=== PATIENT | female | born 1995 | race Caucasian/White ===

== ENCOUNTER 2019-10-06 23:25 | Emergency (ER) | payer BC, OTHER ==
[~2019-10-06] VITALS: Ht 177.8 cm; Wt 118.8 kg
[2019-10-07] MEDS ORDERED: ONDANSETRON PF 4 MG/2 ML VIAL. IV ONE (01:15)
[2019-10-07] MEDS ORDERED: IV NORMAL SALINE 1,000ML 1,000 ML IV ONE (01:15)
[2019-10-07 01:29] LABS: BASO % 0 % (0-3); EOS % 0 % (0-3); HEMATOCRIT 37.9 % (36.0-47.0); HEMOGLOBIN 12.7 g/dL (12.0-15.5); LYMPH # 0.7 x10^3/uL (1.0-4.8); LYMPH % 8 % (24-48); MEAN CORPUSCULAR HEMOGLOBIN 28 pg (25-35); MEAN CORPUSCULAR HGB CONC 34 g/dL (31-37); MEAN CORPUSCULAR VOLUME 83 fL (79-100); MONO # 0.1 x10^3/uL (0.0-1.1); MONO % 1 % (0-9); NEUT % 91 % (31-73); PLATELET COUNT 288 x10^3/uL (140-400); RED BLOOD COUNT 4.56 x10^6/uL (3.50-5.40); RED CELL DISTRIBUTION WIDTH 14.9 % (11.5-14.5); WHITE BLOOD COUNT 9.9 x10^3/uL (4.0-11.0)
--- NOTE | 2019-10-07 01:31 | PHYS DOC ---
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 This concerned her and brought her to the emergency room. Also she does note for the last 30 minutes or so she's been having right-sided abdominal pain, dull mild lower abdomen has had a history of a gallbladder surgery in the past. Patient has nausea no vomiting has does suffer from intermittent diarrhea denies any urinary symptoms. She is worried because she has been fatigued the last couple weeks she went to her primary care doctor and had labs done on Sunday but they're not back yet. She does take methotrexate injections once a week she missed last week because she was worried because she went to urgent care and she had bilirubin her urine and she was worried about that so she did not take her methotrexate last time. Review of Systems Review of Systems Constitutional: Denies fever or chills [] Eyes: Denies change in visual acuity, redness, or eye pain [] HENT: Denies nasal congestion or sore throat [] Respiratory: mild cough Musculoskeletal: joint pains from pa Neurologic: Denies headache, focal weakness or sensory changes [] Endocrine: Denies polyuria or polydipsia [] All other systems were reviewed and found to be within normal limits, except as documented in this note. Current Medications Current Medications Current Medications Medications (Trade) Dose Ordered Sig/Natalie Start Time Stop Time Status Last Admin Dose Admin Ondansetron HCl (Zofran) 4 mg 1X ONCE 10/07/19 01:15 10/07/19 01:22 DC 10/07/19 01:22 4 MG Sodium Chloride 1,000 ml @ 1,000 mls/hr 1X ONCE 10/07/19 01:15 10/07/19 02:14 10/07/19 01:15 1,000 MLS/HR Allergies Allergies Allergies Coded Allergies Type Severity Reaction Last Updated Verified Sulfa (Sulfonamide Antibiotics) Allergy Intermediate 10/07/19 Yes cephalexin Allergy Intermediate 10/07/19 Yes egg Allergy Intermediate 10/07/19 Yes peanut Allergy Intermediate 10/07/19 Yes shellfish derived Allergy Intermediate 10/07/19 Yes Physical Exam Physical Exam Constitutional: Well developed, well nourished, no acute distress, non-toxic appearance. [] HENT: Normocephalic, atraumatic, bilateral external ears normal, oropharynx moist, no oral exudates, nose normal. [] Eyes: PERRLA, EOMI, conjunctiva normal, no discharge. [] Neck: Normal range of motion, no tenderness, supple, no stridor. [] Cardiovascular:Heart rate regular rhythm, no murmur [] Lungs & Thorax: Bilateral breath sounds clear to auscultation [] Abdomen: Bowel sounds normal, soft, mild rlq tenderness, no masses, no pulsatile masses. [] Skin: Warm, dry, no erythema, no rash. [] Back: No tenderness, no CVA tenderness. [] Extremities: No tenderness, no cyanosis, no clubbing, ROM intact, no edema. [] Neurologic: Alert and oriented X 3, normal motor function, normal sensory function, no focal deficits noted. [] fnf intact cn's intact. Psychologic: Affect normal, judgement normal, mood normal. [] Current Patient Data Vital Signs Vital Signs Date Time Temp Pulse Resp B/P (MAP) Pulse Ox O2 Delivery O2 Flow Rate FiO2 10/07/19 00:45 98.8 75 16 98 Room Air EKG EKG []Normal sinus rhythm rate of 70 no acute ischemic changes noted interpreted by me the time of encounter no STEMI. Radiology/Procedures Radiology/Procedures [] Impressions: IMPRESSION: 1. No acute process. Appendix is negative. No urinary calculi or hydronephrosis. 2. 3 cm fluid density dominant follicle or cyst of the right ovary. Intrauterine device. Electronically signed by: Tatiana Martinez MD (10/07/2019 3:06 AM) [id number] DICTATED AND SIGNED BY: TATIANA MARTINEZ MD DATE: 10/07/19 0306 CC: HANNAH ZHOU MD; ANGEL DAVE MD ~ Course & Med Decision Making Course & Med Decision Making Pertinent Labs and Imaging studies reviewed. (See chart for details) []Vague symptoms does have some mild right lower quadrant tenderness we will start some lab work hydrate treat nausea and go from there. It sounds that she might of had some orthostatic hypotension-type symptoms earlier she does have a history of psoriatic arthritis she is on methotrexate. pt reassured er workup negative no dysuria pt well appearing d/c home Dragon Disclaimer Dragon Disclaimer This electronic medical record was generated, in whole or in part, using a voice recognition dictation system. Departure Departure: Impression: Primary Impression: Abdominal pain Disposition: HOME, SELF-CARE Condition: STABLE Referrals: ANGEL DAVE MD (PCP) HANNAH ZHOU MD Oct 07, 2019 01:31
[2019-10-07 01:33] LABS: CALCIUM 9.1 mg/dL (8.5-10.1); GFR 69.3; POTASSIUM 4.5 mmol/L (3.5-5.1)
[2019-10-07 01:38] LABS: ALBUMIN 3.9 g/dL (3.4-5.0); ALBUMIN/GLOBULIN RATIO 1.1 (1.0-1.7); TOTAL BILIRUBIN 0.2 mg/dL (0.2-1.0); TOTAL PROTEIN 7.4 g/dL (6.4-8.2)
[2019-10-07 01:51] LABS: COLOR,URINE YELLOW
[2019-10-07 01:52] LABS: BACTERIA,URINE FEW /HPF (0-FEW); BILIRUBIN,URINE NEG (NEG); CLARITY,URINE HAZY; GLUCOSE,URINE NEG (NEG); NITRITE,URINE NEG (NEG); RBC,URINE OCC /HPF (0-2); SQUAMOUS EPITHELIAL CELL,UR FEW /LPF; UROBILINOGEN,URINE 0.2 mg/dL (0.2 mg/dL)
--- NOTE | 2019-10-07 02:07 | RAD ---
AP chest x-ray HISTORY: Dizziness, chest pain. FINDINGS: Mediastinal silhouette is normal. Heart size is normal. No pneumothorax, pulmonary opacities or pleural effusions. Bones are unremarkable. IMPRESSION: No acute process. Electronically signed by: Wayne Martinez MD (10/07/2019 2:04 AM) [id number]
--- NOTE | 2019-10-07 03:09 | RAD ---
CT abdomen and pelvis without contrast PQRS statement: CT scans at this facility use dose reduction including either automated exposure control, iterative reconstructions, and /or weight based radiation dosing via mA and kV modification when appropriate to reduce radiation dose to as low as reasonably achievable. HISTORY: Right lower quadrant abdominal pain. Abdomen findings: 2 mm left lower lobe nodule image 19 given the patient's young age of doubtful significance. No urinary calculi or hydronephrosis. Kidneys, adrenal glands, pancreas, spleen and liver are unremarkable. The appendix is negative. No obstruction or inflammatory changes in GI tract. No abdominal fluid. Lung bases and bones are unremarkable. Pelvis findings: Intrauterine device. Right adnexal 3 cm fluid density dominant follicle or cyst. Left ovary, bladder, rectum and bones are unremarkable. IMPRESSION: 1. No acute process. Appendix is negative. No urinary calculi or hydronephrosis. 2. 3 cm fluid density dominant follicle or cyst of the right ovary. Intrauterine device. Electronically signed by: Wayne Martinez MD (10/07/2019 3:06 AM) [id number]
[2019-10-07 03:33] VITALS: BP 146/85
--- NOTE | 2019-10-07 06:49 | EKG ---
[address] [address] Test Date: 2019-10-07 Test Time: 00:46:36 Pat Name: BRITTON BARAJAS Department: Room: Gender: F Management Specialist: : 1995 Requested By: HANNAH ZHOU Order Number: [id number] Reading MD: Measurements Intervals [place] Rate: 70 P: 38 [place]: 148 QRS: 74 QRSD: 90 T: 61 QT: 374 QTc: 407 Interpretive Statements SINUS RHYTHM QRS(T) CONTOUR ABNORMALITY CONSIDER ANTEROLATERAL MYOCARDIAL DAMAGE POSSIBLY ABNORMAL ECG RI6.01 No previous ECG available for comparison
== END 2019-10-07 03:58 | disposition home or self-care (01) ==
LOC: ER 23:25
DX: R10.31 Right lower quadrant pain (principal); R42 Dizziness and giddiness; M79.7 Fibromyalgia; Z90.49 Acquired absence of other specified parts of digestive tract; Z88.2 Allergy status to sulfonamides; Z88.1 Allergy status to other antibiotic agents; Z91.012 Allergy to eggs; Z91.010 Allergy to peanuts; Z91.013 Allergy to seafood
CPT/HCPCS: 36415; 71045; 74176; 80053; 81001; 81025; 83690; 84484; 85025; 87086; 93005; 96361; 96374; 96375; 99285; J2405; J3010; J7030

== ENCOUNTER → 2019-11-07 | Outpatient (CLI) | payer BC, OTHER ==
--- NOTE | 2019-11-07 12:41 | RAD ---
EXAM: Nuclear gastric emptying scan. HISTORY: Pain COMPARISON: None TECHNIQUE: Serial static images were obtained over the stomach following oral administration of 1.7 mCi of 99m-Tc sulfur colloid in oatmeal. FINDINGS: The stomach empties into the small bowel without evidence of reflux in the area of the esophagus. The estimated time for half emptying of gastric contents, i.e. 'gastric emptying time' is 48 minutes (normal is 66 +/- 22 minutes). There is 36% retained tracer activity within the stomach at one hour, 21% retained tracer activity within stomach at 2 hours, 12% retained tracer activity within stomach at 3 hours 8% retained tracer activity within the stomach at 4 hours. IMPRESSION: Normal gastric emptying scan. Electronically signed by: Juliann Ambrose MD (11/07/2019 12:38 PM) [facility] [place]
== END | disposition home or self-care (01) ==
LOC: NM 07:55
PROVIDERS: ATTEND Internal Medicine Gastroenterology
DX: R10.13 Epigastric pain (principal)
CPT/HCPCS: 78264; A9541

== ENCOUNTER 2019-11-17 20:40 | Emergency (ER) | payer BC, OTHER ==
[~2019-11-17] VITALS: Ht 177.8 cm; Wt 118.0 kg
[2019-11-17 20:50] VITALS: BP 154/94
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
[2019-11-17] MEDS ORDERED: IBUPROFEN 600 MG TABLET. PO ONE (21:00)
[2019-11-17 21:47] LABS: BILIRUBIN,URINE NEG (NEG); CLARITY,URINE TURBID; COLOR,URINE YELLOW; GLUCOSE,URINE NEG (NEG)
[2019-11-17 21:48] LABS: BACTERIA,URINE MOD /HPF (0-FEW); NITRITE,URINE POS (NEG); SQUAMOUS EPITHELIAL CELL,UR MANY /LPF; UROBILINOGEN,URINE 0.2 mg/dL (0.2 mg/dL); WBC,URINE 20-40 /HPF (0-4)
[2019-11-17 21:51] LABS: BARBITURATES NEG (NEG); BENZODIAZEPINES NEG (NEG); CANNABINOIDS NEG (NEG); COCAINE NEG (NEG); METHADONE NEG (NEG); OPIATES NEG (NEG); PHENCYCLIDINE NEG (NEG)
[2019-11-17 21:52] LABS: AMPHETAMINE/METHAMPHETAMINE NEG (NEG)
--- NOTE | 2019-11-17 22:15 | RAD ---
CT HEAD AND CERVICAL SPINE WO, CT MAXILLOFACIAL WO CONTRAST Date: 11/17/2019 8:59 PM Clinical Indication: Pain, fall Comparison: None. Technique: 5 mm axial tomographic images were obtained of the head without contrast. These were viewed on brain and bone windows. Axial helical images of the face were obtained without contrast. Axial and coronal reconstruction was performed. CT imaging of the cervical spine was performed without contrast. Coronal and sagittal reformatted images were performed. One or more of the following dose reduction techniques were utilized: Automated exposure control (AEC), Adjustment of mA and/or kV according to patient size, Use of iterative reconstruction technique such as ASiR, CT scan done according to ALARA and image gently/image wisely CT HEAD FINDINGS: The brain parenchyma is normal in attenuation. No intra- or extra-axial mass or fluid collection. No acute hemorrhage. The ventricles are normal in size, shape, and morphology. The quinn-white matter junction is normal. The basilar cisterns are patent. The mastoid air cells are clear. No aggressive osseous lesion or fracture. CT FACE FINDINGS: There is no acute facial bone fracture. 6 mm sublingual calcification of the right, possibly sialolithiasis. The paranasal sinuses are clear. The orbits are normal. The globes are intact. The nasal septum is deviated to the right. Left jennifer bullosa. CT CERVICAL SPINE FINDINGS: Straightening of the cervical lordosis. No acute fracture. No aggressive lytic or blastic osseous lesion. The intervertebral disc heights are maintained. No high-grade spinal canal stenosis or neural foraminal narrowing. The thyroid gland is normal. No cervical lymphadenopathy. The visualized aerodigestive tract is unremarkable. The visualized lung apices are clear. Impression: 1. No acute intracranial process. 2. No acute facial bone fracture. 3. No acute osseous abnormality of the cervical spine. Electronically signed by: Arpan Frederick MD (11/17/2019 10:12 PM) [id number]
[2019-11-17] MEDS ORDERED: HYDR-1179 PO (22:31)
== END 2019-11-17 23:10 | disposition home or self-care (01) ==
LOC: ER 20:40
DX: S00.83XA Contusion of other part of head, initial encounter (principal); Z90.49 Acquired absence of other specified parts of digestive tract; Z88.2 Allergy status to sulfonamides; Z91.010 Allergy to peanuts; Z91.013 Allergy to seafood; Z91.012 Allergy to eggs; Z88.8 Allergy status to other drugs, medicaments and biological substances; Y04.2XXA Assault by strike against or bumped into by another person, initial encounter; Y93.89 Activity, other specified; Y92.89 Other specified places as the place of occurrence of the external cause; Y99.8 Other external cause status
CPT/HCPCS: 36415; 70450; 70486; 72125; 80307; 81001; 81025; 87086; 99285

== ENCOUNTER → 2020-04-15 | Outpatient (CLI) | payer OTHER ==
[~2020-04-15] MED LIST: HYDR-1179 PO
== END ==
LOC: LAB 06:50
PROVIDERS: ATTEND Internal Medicine Cardiovascular Disease
DX: J45.909 Unspecified asthma, uncomplicated (principal); M79.7 Fibromyalgia; M35.8 Other specified systemic involvement of connective tissue; Z20.828 Contact with and (suspected) exposure to other viral communicable diseases
CPT/HCPCS: 36415; U0003

== ENCOUNTER → 2020-04-22 | Outpatient (CLI) | payer OTHER | END | disposition home or self-care (01) | LOC: LAB 04:50 | PROVIDERS: ATTEND Internal Medicine Cardiovascular Disease | DX: Z20.828 Contact with and (suspected) exposure to other viral communicable diseases (principal) | CPT/HCPCS: C9803; U0003; 36415 ==

== ENCOUNTER → 2020-04-29 | Outpatient (CLI) | payer OTHER | END | disposition home or self-care (01) | LOC: LAB 06:23 | PROVIDERS: ATTEND Internal Medicine Cardiovascular Disease | DX: R05 Cough (principal); R06.03 Acute respiratory distress; Z20.828 Contact with and (suspected) exposure to other viral communicable diseases | CPT/HCPCS: C9803; U0003; 36415 ==

== ENCOUNTER → 2020-05-23 | Outpatient (CLI) | payer OTHER | END | disposition home or self-care (01) | LOC: LAB 11:47 | PROVIDERS: ATTEND Internal Medicine Cardiovascular Disease | DX: Z20.828 Contact with and (suspected) exposure to other viral communicable diseases (principal) | CPT/HCPCS: U0003-CS ==

== ENCOUNTER → 2020-06-03 | Outpatient (CLI) | payer OTHER | END | disposition home or self-care (01) | LOC: LAB 06:12 | PROVIDERS: ATTEND Internal Medicine Cardiovascular Disease | DX: Z20.828 Contact with and (suspected) exposure to other viral communicable diseases (principal) | CPT/HCPCS: U0003-CS ==

== ENCOUNTER → 2020-07-07 | Outpatient (CLI) | payer BC, OTHER ==
--- NOTE | 2020-07-07 13:55 | RAD ---
EXAMINATION: BREAST LEFT, 07/07/2020 1:00 PM CLINICAL INDICATION: Pain in lower inner left breast COMPARISON: None TECHNIQUE: The patient was scanned in the area of pain in the lower inner left breast from 7-9 o'clock SONOGRAPHIC FINDINGS: There is normal thyroid glandular tissue. No mass or cyst. IMPRESSION: 1. No evidence of malignancy. 2. BI-RADS 1-negative. Annual screening mammogram is recommended beginning at the age of 40. Electronically signed by: Minnie Pandey MD (07/07/2020 1:52 PM) [id number]
== END ==
LOC: US 13:15
PROVIDERS: ATTEND Obstetrics & Gynecology
DX: N64.4 Mastodynia (principal); N63.20 Unspecified lump in the left breast, unspecified quadrant
CPT/HCPCS: 76641

== ENCOUNTER 2020-07-31 04:21 | Emergency (ER) | payer BC, OTHER ==
[~2020-07-31] VITALS: Ht 177.8 cm; Wt 126.5 kg
--- NOTE | 2020-07-31 04:26 | PHYS DOC ---
Past History Past Medical History: Arthritis, Fibromyalgia, GERD, Other Additional Past Medical Histor: LUPUS,PSORIATIC ARTHRITIS, ULCER IN SMALL INTESTINE AND STOMACH (BRIDGER LOPEZ MD) Past Surgical History: Cholecystectomy (BRIDGER LOPEZ MD) Alcohol Use: None Drug Use: None (BRIDGER LOPEZ MD) General Adult HPI: HPI: ".. I got some lt arm, Lt. leg and chest tightness.. I was walking down the hallway when it came on.. I was up on [facility]... I just got a canker sore on my upper lip on the left ear,,, this usually happens when getting a lupus flare,,, my last bad flare was 2016.. " Patient is a 25 year old female who presents with above hx and complaints of chest pain with Lt side weakness/ numbness. Pt. has hx of psoriasis, arthritis, lupus, gastric ulcers and duodenal ulcers. Patient recently had a development of a upper lip canker sore. Patient did receive her flu vaccination on her right arm earlier this week with generalized reaction to her right deltoid area. Patient denies any recent trauma or falls. Patient has been exposed to patients who have been ill on the [facility] unit. Patient was exposed to her mother earlier this spring who had Covid. Patient's Covid test has been -716 and 9/ 3 of this year as part of the screening on the [facility]. No recent travel. Patient normally follows with Dr. Dave. Patient has not been on steroids recently for her psoriasis, lupus and arthritis flares. Patient denies any previous history of pericarditis or pulmonary, DVTs or PEs. Patient is on control with a copper IUD. (BRIDGER LOPEZ MD) Review of Systems: Review of Systems: Constitutional: Denies fever or chills Eyes: Denies change in visual acuity HENT: Complains of canker sore on upper lip Respiratory: Denies cough or shortness of breath Cardiovascular: Complaints of chest pain GI: Denies abdominal pain, nausea, vomiting, bloody stools or diarrhea : Denies dysuria Musculoskeletal: Complaints of joint pain and arthritis Integument: Complaints of psoriasis Neurologic: Complains of left-sided weakness Endocrine: Denies polyuria or polydipsia Lymphatic: Denies swollen glands Psychiatric: History of anxiety (BRIDGER LOPEZ MD) Family History: Family History: Noncontributory to presentation (BRIDGER LOPEZ MD) Current Medications: Current Meds: See nursing for home meds (BRIDGER LOPEZ MD) Allergies: Allergies: Allergies Coded Allergies Type Severity Reaction Last Updated Verified Sulfa (Sulfonamide Antibiotics) Allergy Intermediate 10/07/19 Yes cephalexin Allergy Intermediate 10/07/19 Yes egg Allergy Intermediate 10/07/19 Yes peanut Allergy Intermediate 10/07/19 Yes shellfish derived Allergy Intermediate 10/07/19 Yes (BRIDGER LOPEZ MD) Physical Exam: PE: Constitutional: Moderate acute distress, non-toxic appearance. [] HENT: Normocephalic, atraumatic, bilateral external ears normal, oropharynx moist, no oral exudates, nose normal. Small canker sore left upper lip Eyes: PERRLA, EOMI, conjunctiva normal, no discharge. Glasses Neck: Normal range of motion, no tenderness, supple, no stridor. No carotid bruits Cardiovascular:Heart rate regular rhythm, no murmur [] Lungs & Thorax: Bilateral breath sounds equal at apex on auscultation [] Abdomen: Bowel sounds normal, soft, no tenderness, no masses, no pulsatile masses. Obese Skin: Warm, dry, no erythema, mild guttate psoriasis lesions Back: No tenderness, no CVA tenderness. [] Extremities: No tenderness, no cyanosis, no clubbing, ROM intact, no edema. No cording appreciated Neurologic: Alert and oriented X 3, moves all extremities on request, has distal sensory function, no focal deficits noted. Distal vibratory 128 intact. In extremities. No drift. Right-hand dominant. Loading Checker equal. Psychologic: Affect anxious, judgement normal, mood normal. [] (BRIDGER LOPEZ MD) Current Patient Data: Labs: Laboratory Tests Test 07/31/20 04:41 07/31/20 04:48 White Blood Count 6.2 x10^3/uL (4.0-11.0) Red Blood Count 4.58 x10^6/uL (3.50-5.40) Hemoglobin 12.6 g/dL (12.0-15.5) Hematocrit 38.1 % (36.0-47.0) Mean Corpuscular Volume 83 fL (79-100) Mean Corpuscular Hemoglobin 28 pg (25-35) Mean Corpuscular Hemoglobin Concent 33 g/dL (31-37) Red Cell Distribution Width 13.6 % (11.5-14.5) Platelet Count 265 x10^3/uL (140-400) Neutrophils (%) (Auto) 61 % (31-73) Lymphocytes (%) (Auto) 29 % (24-48) Monocytes (%) (Auto) 9 % (0-9) Eosinophils (%) (Auto) 1 % (0-3) Basophils (%) (Auto) 1 % (0-3) Neutrophils # (Auto) 3.7 x10^3uL (1.8-7.7) Lymphocytes # (Auto) 1.8 x10^3/uL (1.0-4.8) Monocytes # (Auto) 0.6 x10^3/uL (0.0-1.1) Eosinophils # (Auto) 0.1 x10^3/uL (0.0-0.7) Basophils # (Auto) 0.0 x10^3/uL (0.0-0.2) Prothrombin Time 9.8 SEC (9.4-11.4) Prothromb Time International Ratio 0.9 (0.9-1.1) Activated Partial Thromboplast Time 28 SEC (23-33) D-Dimer (Valeria) 0.39 mg/L (0.00-0.50) Sodium Level 142 mmol/L (136-145) Potassium Level 3.7 mmol/L (3.5-5.1) Chloride Level 104 mmol/L (98-107) Carbon Dioxide Level 27 mmol/L (21-32) Anion Gap 11 (6-14) Blood Urea Nitrogen 15 mg/dL (7-20) Creatinine 1.2 mg/dL (0.6-1.0) Estimated GFR (Cockcroft-Gault) 55.7 Glucose Level 97 mg/dL (70-99) Calcium Level 8.5 mg/dL (8.5-10.1) Magnesium Level 2.1 mg/dL (1.8-2.4) Total Bilirubin 0.1 mg/dL (0.2-1.0) Direct Bilirubin 0.1 mg/dL (0.0-0.2) Aspartate Amino Transf (AST/SGOT) 25 U/L (15-37) Alanine Aminotransferase (ALT/SGPT) 36 U/L (14-59) Alkaline Phosphatase 101 U/L (46-116) Creatine Kinase 161 U/L (26-192) Troponin I Quantitative < 0.017 ng/mL (0-0.055) C-Reactive Protein 11.3 mg/L (0-3.3) VV-Jpn-C-Type Natriuretic Peptide 33 pg/mL (0-124) Total Protein 7.5 g/dL (6.4-8.2) Albumin 3.8 g/dL (3.4-5.0) Lipase 112 U/L (73-393) Urine Collection Type Unknown Urine Color Yellow Urine Clarity Hazy Urine pH 6.5 Urine Specific Kegley >=1.030 Urine Protein Neg (NEG-TRACE) Urine Glucose (UA) Neg mg/dL (NEG) Urine Ketones (Stick) Trace mg/dL (NEG) Urine Blood Large (NEG) Urine Nitrite Neg (NEG) Urine Bilirubin Neg (NEG) Urine Urobilinogen Dipstick 0.2 mg/dL (0.2 mg/dL) Urine Leukocyte Esterase Neg (NEG) Urine RBC 20-40 /HPF (0-2) Urine WBC Occ /HPF (0-4) Urine Squamous Epithelial Cells Few /LPF Urine Bacteria Few /HPF (0-FEW) Urine Opiates Screen Neg (NEG) Urine Methadone Screen Neg (NEG) Urine Barbiturates Neg (NEG) Urine Phencyclidine Screen Neg (NEG) Urine Amphetamine/Methamphetamine Neg (NEG) Urine Benzodiazepines Screen Neg (NEG) Urine Cocaine Screen Neg (NEG) Urine Cannabinoids Screen Neg (NEG) Urine Ethyl Alcohol Neg (NEG) Vital Signs: Vital Signs Date Time Temp Pulse Resp B/P (MAP) Pulse Ox O2 Delivery O2 Flow Rate FiO2 07/31/20 06:24 60 8 126/65 (85) 100 Room Air 07/31/20 04:54 98.7 (KAM RAM DO) EKG: EKG: My interpretation EKG shows a sinus rhythm at 74 bpm with no acute morphology [] (BRIDGER LOPEZ MD) Radiology/Procedures: Radiology/Procedures: [[address] [address] IMAGING REPORT Signed PATIENT: BRITTON BARAJASCOUNT: [id number] : 1995 LOCATION: ER AGE: 25 SEX: F EXAM STATUS: REG ER ORD. PHYSICIAN: BRIDGER LOPEZ MD REASON: Lt side weak and numbness PROCEDURE: CT HEAD AND CERVICAL SPINE WO INDICATION: Reason: Lt side weak and numbness / Spl. Instructions: / History: COMPARISON: None. TECHNIQUE: Axial CT images obtained through the head and cervical spine without intravenous contrast. Coronal and sagittal reformats processed of cervical spine. One or more of the following individualized dose reduction techniques were utilized for this examination: 1. Automated exposure control; 2. Adjustment of the mA and/or kV according to patient size; 3. Use of iterative reconstruction technique. FINDINGS: Head: No intracranial hemorrhage. No midline shift. Basal cisterns patents. Ventricles and sulci are within normal limits. No acute osseous abnormality. Orbits and paranasal sinuses unremarkable. Cervical: No definite acute fracture. Mild wedging of T1 and T2 again seen. There is some mild degenerative changes of the cervical spine with early osteophyte formation at the vertebral body endplates as well as disc protrusion. There is mild prominence of the facet joint at C4-5 on the left measuring up to about 2 mm. No dislocation. No evidence of perivertebral hematoma. IMPRESSION: * No acute intracranial hemorrhage. * No acute fracture of cervical spine. There is some early degenerative changes with osteophyte formation as well as disc protrusions. * Mild prominence of the left facet joint at C4-5. Causes such as a facet joint effusion could have this appearance. Electronically signed by: Duglas Nice MD (07/31/2020 5:46 AM) [id number] DICTATED AND SIGNED BY: DUGLAS NICE MD DATE: 07/31/20 0546 CC: BRIDGER LOPEZ MD; ANGEL DAVE MD ~ ][address] [address] IMAGING REPORT Signed PATIENT: BRITTON BARAJAS MACCOUNT: [id number] : 1995 LOCATION: ER AGE: 25 SEX: F EXAM STATUS: REG ER ORD. PHYSICIAN: BRIDGER LOPEZ MD REASON: cp PROCEDURE: CHEST PA & LATERAL INDICATION: Reason: cp / Spl. Instructions: / History: COMPARISON: October 07, 2019 FINDINGS: 2 view of chest obtained. No focal airspace consolidation. Cardiomediastinal contour unremarkable. No acute osseous abnormality. There is some suspected mild degenerative changes the spine with osteophytes. IMPRESSION: * No focal airspace consolidation or edema. Electronically signed by: Duglas Nice MD (07/31/2020 5:30 AM) [id number] DICTATED AND SIGNED BY: DUGLAS NICE MD DATE: 07/31/20529 CC: BRIDGER LOPEZ MD; ANGEL DAVE MD ~ (BRIDGER LOPEZ MD) Radiology/Procedures: PROCEDURE: CT HEAD AND CERVICAL SPINE WO INDICATION: Reason: Lt side weak and numbness / Spl. Instructions: / History: COMPARISON: None. TECHNIQUE: Axial CT images obtained through the head and cervical spine without intravenous contrast. Coronal and sagittal reformats processed of cervical spine. One or more of the following individualized dose reduction techniques were utilized for this examination: 1. Automated exposure control; 2. Adjustment of the mA and/or kV according to patient size; 3. Use of iterative reconstruction technique. FINDINGS: Head: No intracranial hemorrhage. No midline shift. Basal cisterns patents. Ventricles and sulci are within normal limits. No acute osseous abnormality. Orbits and paranasal sinuses unremarkable. Cervical: No definite acute fracture. Mild wedging of T1 and T2 again seen. There is some mild degenerative changes of the cervical spine with early osteophyte formation at the vertebral body endplates as well as disc protrusion. There is mild prominence of the facet joint at C4-5 on the left measuring up to about 2 mm. No dislocation. No evidence of perivertebral hematoma. IMPRESSION: * No acute intracranial hemorrhage. * No acute fracture of cervical spine. There is some early degenerative changes with osteophyte formation as well as disc protrusions. * Mild prominence of the left facet joint at C4-5. Causes such as a facet joint effusion could have this appearance. Electronically signed by: Duglas Nice MD (07/31/2020 5:46 AM) Car[employer]on [id number] PROCEDURE: CHEST PA & LATERAL INDICATION: Reason: cp / Spl. Instructions: / History: COMPARISON: October 07, 2019 FINDINGS: 2 view of chest obtained. No focal airspace consolidation. Cardiomediastinal contour unremarkable. No acute osseous abnormality. There is some suspected mild degenerative changes the spine with osteophytes. IMPRESSION: * No focal airspace consolidation or edema. Electronically signed by: Duglas Nice MD (07/31/2020 5:30 AM) [id number] (KAM RAM DO) Heart Score: HEART Score for Chest Pain: HEART Score for Chest Pain Response (Comments) Value History Slighlty/Non-Suspicious 0 ECG Normal 0 Age < 45 0 Risk Factors 1 or 2 Risk Factors 1 Troponin < Normal Limit 0 Total 1 Risk Factors: Risk Factors: DM, Current or recent (<one month) smoker, HTN, HLP, family history of CAD, obesity. Risk Scores: Score 0 - 3: 2.5% MACE over next 6 weeks - Discharge Home Score 4 - 6: 20.3% MACE over next 6 weeks - Admit for Clinical Observation Score 7 - 10: 72.7% MACE over next 6 weeks - Early Invasive Strategies (BRIDGER LOPEZ MD) HEART Score for Chest Pain: HEART Score for Chest Pain Response (Comments) Value History Moderately Suspicious 1 ECG Normal 0 Age < 45 0 Risk Factors 1 or 2 Risk Factors 1 Troponin < Normal Limit 0 Total 2 Risk Factors: Lupus (KAM RAM DO) Course & Med Decision Making: Course & Med Decision Making Pertinent Labs and Imaging studies reviewed. (See chart for details) Pt. checked out to Dr. Ram at shift change. Labs pending and CT results. Impression: 1. Hx. Lupus 2. Chest Pain Complaints 3. History of psoriatic arthritis [] (BRIDGER LOPEZ MD) Course & Med Decision Making Discussed most likely diagnosis of unspecified chest pain versus lupus flare versus other. I disclose this might be an acute presentation of more concerning pathology but at present, patient relatively asymptomatic, hemodynamically stable, and wanting to go home All diagnostic testing performed today grossly unremarkable, only test pending his TSH at this time. This can be followed up by primary care physician in outpatient setting Discussed utility in admission for cardiac observation but joint decision to d ischarge home with short term steroid burst and close PCP follow-up within upcoming 2 to 5 days time. Patient has good access to health care in outpatient setting, reports this will not be a problem Strict return precautions were discussed with good understanding, all questions and concerns addressed prior to ER departure home in stable condition (KAM RAM DO) Gogo Disclaimer: Gogo Disclaimer: This electronic medical record was generated, in whole or in part, using a voice recognition dictation system. (BRIDGER LOPEZ MD) Departure Departure: Impression: Primary Impression: Chest pain, unspecified Additional Impression: Lupus Disposition: DC HOME SELF CARE/HOMELESS Condition: STABLE Referrals: ANGEL DAVE MD (PCP) Patient Instructions: Chest Pain (Nonspecific), Lupus Additional Instructions: As discussed prior to ER departure, please call your primary care physician first thing Sunday morning for a follow-up in outpatient setting in upcoming 2 to 6 days time for repeat evaluation. You would benefit from outpatient rheumatology consultation. Please discussed need for repeat outpatient laboratory analysis to ensure improvement in CRP levels. If any concerning signs or symptoms present prior to outpatient follow-up, please do not hesitate to come back for repeat evaluation and therapy as indicated It was a pleasure to take care of you and I wish you a speedy recovery! Scripts Prednisone (PREDNISONE) 20 Mg Tablet 40 MG PO DAILY for lupus for 6 Days, #12 TAB Prov: KAM RAM DO 07/31/20 Gogo Disclaimer This chart was dictated in whole or in part using Voice Recognition software in a busy, high-work load, and often noisy Emergency Department environment. It may contain unintended and wholly unrecognized errors or omissions. (BRIDGER LOPEZ MD) BRIDGER LOPEZ MD Jul 31, 2020 04:26 KAM RAM DO Jul 31, 2020 06:51
[2020-07-31] MEDS ORDERED: IV RINGERS SOLUTION,LACTATED 1,000 ML IV SCH (04:29)
[2020-07-31] MEDS ORDERED: ASPIRIN CHEWABLE 81 MG TABLET. PO ONE (04:30)
--- NOTE | 2020-07-31 05:33 | RAD ---
INDICATION: Reason: cp / Spl. Instructions: / History: COMPARISON: October 07, 2019 FINDINGS: 2 view of chest obtained. No focal airspace consolidation. Cardiomediastinal contour unremarkable. No acute osseous abnormality. There is some suspected mild degenerative changes the spine with osteophytes. IMPRESSION: * No focal airspace consolidation or edema. Electronically signed by: Duglas Nice MD (07/31/2020 5:30 AM) [id number]
[2020-07-31 05:39] LABS: BASO % 1 % (0-3); EOS # 0.1 x10^3/uL (0.0-0.7); EOS % 1 % (0-3); HEMATOCRIT 38.1 % (36.0-47.0); HEMOGLOBIN 12.6 g/dL (12.0-15.5); LYMPH # 1.8 x10^3/uL (1.0-4.8); LYMPH % 29 % (24-48); MEAN CORPUSCULAR HEMOGLOBIN 28 pg (25-35); MEAN CORPUSCULAR HGB CONC 33 g/dL (31-37); MEAN CORPUSCULAR VOLUME 83 fL (79-100); MONO # 0.6 x10^3/uL (0.0-1.1); MONO % 9 % (0-9); NEUT # 3.7 x10^3uL (1.8-7.7); NEUT % 61 % (31-73); PLATELET COUNT 265 x10^3/uL (140-400); RED BLOOD COUNT 4.58 x10^6/uL (3.50-5.40); RED CELL DISTRIBUTION WIDTH 13.6 % (11.5-14.5); WHITE BLOOD COUNT 6.2 x10^3/uL (4.0-11.0)
[2020-07-31 05:42] LABS: BILIRUBIN,URINE NEG (NEG); CLARITY,URINE HAZY; COLOR,URINE YELLOW; GLUCOSE,URINE NEG (NEG)
[2020-07-31 05:43] LABS: BACTERIA,URINE FEW /HPF (0-FEW); NITRITE,URINE NEG (NEG); RBC,URINE 20-40 /HPF (0-2); SQUAMOUS EPITHELIAL CELL,UR FEW /LPF; UROBILINOGEN,URINE 0.2 mg/dL (0.2 mg/dL); WBC,URINE OCC /HPF (0-4)
[2020-07-31 05:45] LABS: CALCIUM 8.5 mg/dL (8.5-10.1); CREATININE 1.2 mg/dL (0.6-1.0); GFR 55.7; POTASSIUM 3.7 mmol/L (3.5-5.1)
[2020-07-31 05:47] LABS: BARBITURATES NEG (NEG); BENZODIAZEPINES NEG (NEG); CANNABINOIDS NEG (NEG); COCAINE NEG (NEG); METHADONE NEG (NEG); OPIATES NEG (NEG); PHENCYCLIDINE NEG (NEG)
--- NOTE | 2020-07-31 05:49 | RAD ---
INDICATION: Reason: Lt side weak and numbness / Spl. Instructions: / History: COMPARISON: None. TECHNIQUE: Axial CT images obtained through the head and cervical spine without intravenous contrast. Coronal and sagittal reformats processed of cervical spine. One or more of the following individualized dose reduction techniques were utilized for this examination: 1. Automated exposure control; 2. Adjustment of the mA and/or kV according to patient size; 3. Use of iterative reconstruction technique. FINDINGS: Head: No intracranial hemorrhage. No midline shift. Basal cisterns patents. Ventricles and sulci are within normal limits. No acute osseous abnormality. Orbits and paranasal sinuses unremarkable. Cervical: No definite acute fracture. Mild wedging of T1 and T2 again seen. There is some mild degenerative changes of the cervical spine with early osteophyte formation at the vertebral body endplates as well as disc protrusion. There is mild prominence of the facet joint at C4-5 on the left measuring up to about 2 mm. No dislocation. No evidence of perivertebral hematoma. IMPRESSION: * No acute intracranial hemorrhage. * No acute fracture of cervical spine. There is some early degenerative changes with osteophyte formation as well as disc protrusions. * Mild prominence of the left facet joint at C4-5. Causes such as a facet joint effusion could have this appearance. Electronically signed by: Duglas Nice MD (07/31/2020 5:46 AM) [id number]
[2020-07-31 05:57] LABS: ALBUMIN 3.8 g/dL (3.4-5.0); C REACTIVE PROTEIN 11.3 mg/L (0-3.3); DIRECT BILIRUBIN 0.1 mg/dL (0.0-0.2); MAGNESIUM 2.1 mg/dL (1.8-2.4); TOTAL BILIRUBIN 0.1 mg/dL (0.2-1.0); TOTAL PROTEIN 7.5 g/dL (6.4-8.2)
--- NOTE | 2020-07-31 05:59 | EKG ---
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
[2020-07-31 06:08] LABS: AMPHETAMINE/METHAMPHETAMINE NEG (NEG)
[2020-07-31 06:24] VITALS: BP 126/65
[2020-07-31] MEDS ORDERED: AMOXICILLIN 250 MG/5 ML ORAL.SUSP. PO ONE (06:30)
[2020-07-31] MEDS ORDERED: predniSONE 10 MG TABLET PO ONE (06:30)
[2020-07-31] MEDS ORDERED: PRED20TA PO (06:59)
== END 2020-07-31 07:04 | disposition home or self-care (01) ==
LOC: ER 04:21
DX: R07.89 Other chest pain (principal); L40.50 Arthropathic psoriasis, unspecified; M32.9 Systemic lupus erythematosus, unspecified; M79.7 Fibromyalgia; K21.9 Gastro-esophageal reflux disease without esophagitis; Z90.49 Acquired absence of other specified parts of digestive tract; Z88.2 Allergy status to sulfonamides; Z88.1 Allergy status to other antibiotic agents; Z91.012 Allergy to eggs; Z91.010 Allergy to peanuts; Z91.013 Allergy to seafood
CPT/HCPCS: 36415; 70450; 71046; 72125; 80048; 80076; 80307; 81001; 82550; 83690; 83735; 83880; 84443; 84484; 85025; 85379; 85610; 85730; 86140; 93005; 96360; 99285; J7120; J7512

== ENCOUNTER → 2020-08-13 | Outpatient (CLI) | payer OTHER ==
[2020-07-31 06:24] VITALS: BP 126/65
[~2020-08-13] MED LIST changes: +PRED20TA PO
== END ==
LOC: LAB 13:37
PROVIDERS: ATTEND Internal Medicine Cardiovascular Disease
DX: Z20.828 Contact with and (suspected) exposure to other viral communicable diseases (principal)
CPT/HCPCS: U0003

== ENCOUNTER → 2020-08-30 | Outpatient (CLI) | payer OTHER ==
[2020-07-31 06:24] VITALS: BP 126/65
== END ==
LOC: LAB 00:38
PROVIDERS: ATTEND Internal Medicine Cardiovascular Disease
DX: Z20.828 Contact with and (suspected) exposure to other viral communicable diseases (principal)
CPT/HCPCS: U0003

== ENCOUNTER → 2020-09-06 | Outpatient (CLI) | payer OTHER | LOC: LAB 02:06 | PROVIDERS: ATTEND Internal Medicine Cardiovascular Disease | DX: Z20.828 Contact with and (suspected) exposure to other viral communicable diseases (principal) | CPT/HCPCS: U0003 ==

== ENCOUNTER 2020-09-26 00:44 | Emergency (ER) | payer OTHER ==
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
[2020-09-26] MEDS ORDERED: BACITRACIN ZINC TOPICAL OINT PACKET. TP ONE (01:45)
[2020-09-26] MEDS ORDERED: metroNIDAZOLE 500 MG TABLET PO ONE (01:45)
[2020-09-26] MEDS ORDERED: ONDANSETRON ODT 4 MG TAB.RAPDIS PO ONE (01:45)
[2020-09-26] MEDS ORDERED: IBUPROFEN 600 MG TABLET. PO ONE (01:45)
[2020-09-26] MEDS ORDERED: AMOXICILLIN/K CLAV 875/125MG TABLET. PO ONE (01:45)
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
[2020-09-26] MEDS ORDERED: BACI28.34 TP (02:11)
[2020-09-26] MEDS ORDERED: METR500T PO (02:11)
[2020-09-26] MEDS ORDERED: AMOX1TAB61 PO (02:11)
[2020-09-26 02:41] LABS: CREATININE 1.2 mg/dL (0.6-1.0); GFR 55.7; POTASSIUM 4.2 mmol/L (3.5-5.1)
[2020-09-26 03:25] LABS: BASO % 0 % (0-3); EOS % 0 % (0-3); HEMATOCRIT 38.4 % (36.0-47.0); HEMOGLOBIN 12.9 g/dL (12.0-15.5); LYMPH # 0.9 x10^3/uL (1.0-4.8); LYMPH % 10 % (24-48); MEAN CORPUSCULAR HEMOGLOBIN 28 pg (25-35); MEAN CORPUSCULAR HGB CONC 34 g/dL (31-37); MEAN CORPUSCULAR VOLUME 84 fL (79-100); MONO # 0.2 x10^3/uL (0.0-1.1); MONO % 2 % (0-9); NEUT # 8.1 x10^3uL (1.8-7.7); NEUT % 88 % (31-73); PLATELET COUNT 292 x10^3/uL (140-400); RED BLOOD COUNT 4.58 x10^6/uL (3.50-5.40); RED CELL DISTRIBUTION WIDTH 13.3 % (11.5-14.5); WHITE BLOOD COUNT 9.2 x10^3/uL (4.0-11.0)
== END 2020-09-26 02:30 | disposition home or self-care (01) ==
LOC: ER 00:44
DX: S61.451A Open bite of right hand, initial encounter (principal); S60.221A Contusion of right hand, initial encounter; M19.90 Unspecified osteoarthritis, unspecified site; M79.7 Fibromyalgia; K21.9 Gastro-esophageal reflux disease without esophagitis; Z88.2 Allergy status to sulfonamides; Z88.1 Allergy status to other antibiotic agents; Z91.013 Allergy to seafood; Z91.018 Allergy to other foods; Z91.012 Allergy to eggs; Y04.1XXA Assault by human bite, initial encounter; Y93.89 Activity, other specified; Y92.89 Other specified places as the place of occurrence of the external cause; Y99.8 Other external cause status
CPT/HCPCS: 36415; 73130; 80048; 85025; 86592; 86703; 86705; 86709; 86803; 87340; 99284; Q0162

== ENCOUNTER → 2020-10-03 | Outpatient (CLI) | payer OTHER ==
[2020-09-26 00:44] VITALS: BP 137/69
[~2020-10-03] MED LIST changes: +AMOX1TAB61 PO; +BACI28.34 TP; +FAMO-63 PO; +METR500T PO; +PRED50TA PO
== END ==
LOC: LAB 12:45
PROVIDERS: ATTEND Internal Medicine Cardiovascular Disease
DX: R50.9 Fever, unspecified (principal); R51.9 Headache, unspecified; J02.9 Acute pharyngitis, unspecified; Z20.828 Contact with and (suspected) exposure to other viral communicable diseases
CPT/HCPCS: U0003

== ENCOUNTER 2020-11-04 23:45 | Emergency (ER) | payer BC, OTHER ==
[~2020-11-04] VITALS: Ht 177.8 cm; Wt 122.7 kg
[~2020-11-04 23:45] MED LIST changes: -FAMO-63 PO; -PRED50TA PO
--- NOTE | 2020-11-05 00:56 | PHYS DOC ---
Past History Past Medical History: Arthritis, Fibromyalgia, GERD, Other Additional Past Medical Histor: LUPUS,PSORIATIC ARTHRITIS, ULCER IN SMALL INTESTINE AND STOMACH Past Surgical History: Cholecystectomy Alcohol Use: None Drug Use: None General Adult EDM: Chief Complaint: ALLERGIC REACTION HPI: HPI: ".. I think.. I am having a delayed IV contrast from my CT of abdomen yesterday... for my abdomen pain complaints... .. at [facility]... I ve had that before.. and I am sure that what going on. I did give myself... epi pen... 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 presents with above complaints of dyspnea and wheezing. Patient did receive a CT of her abdomen with IV contrast yesterday for evaluation of persistent and chronic abdomen pain. Patient states she felt like she was having a significant allergic reaction and injected herself with an EpiPen. This seemed to abruptly resolve her symptoms of dyspnea and wheezing. However she still feels somewhat tight in the chest and generalized discomfort. Patient denies significant past medical history for arthritis, fibromyalgia, GERD, abdomen pain, lupus, psoriasis, psoriatic arthritis, ulcers of Stomach and small bowel, obesity, multiple drug and food sensitivities/ allergies, anxiety and obesity. Patient denies any recent travel outside the [place] area. Is exposed to ill patients on the [facility] behavioral health unit. Previous Covid test s have been negative. Patient follows with Dr. Dave as primary. Review of Systems: Review of Systems: Constitutional: Denies fever or chills . Complains of feeling like she is having an allergic reaction. Eyes: Denies change in visual acuity HENT: Denies nasal congestion or sore throat Respiratory: Complains of cough, wheezing, shortness of breath Cardiovascular: Complaints of chest discomfort after EpiPen injection GI: Denies abdominal pain, nausea, vomiting, bloody stools or diarrhea : Denies dysuria Musculoskeletal: Denies back pain or joint pain Integument: Complains of psoriatic rash Neurologic: Denies headache, focal weakness or sensory changes Endocrine: Denies polyuria or polydipsia Lymphatic: Denies swollen glands Psychiatric: complaints of anxiety Family History: Family History: Noncontributory to presentation Current Medications: Current Meds: See nursing for home meds Allergies: Allergies: Allergies Coded Allergies Type Severity Reaction Last Updated Verified Sulfa (Sulfonamide Antibiotics) Allergy Intermediate 10/07/19 Yes cephalexin Allergy Intermediate 10/07/19 Yes egg Allergy Intermediate 10/07/19 Yes peanut Allergy Intermediate 10/07/19 Yes shellfish derived Allergy Intermediate 10/07/19 Yes Physical Exam: PE: Constitutional: Patient reports moderate acute distress, non-toxic appearance. [] HENT: Normocephalic, atraumatic, bilateral external ears normal, oropharynx moist, no oral exudates, nose slightly boggy turbinates with clear rhinorrhea Eyes: PERRLA, EOMI, conjunctiva normal, no discharge. [] Neck: Normal range of motion, no tenderness, supple, no stridor. More than 17 inches circumference Cardiovascular:Heart rate regular rhythm, no murmur [] Lungs & Thorax: Bilateral breath sounds equal apex with few scattered wheezes on auscultation [] Abdomen: Bowel sounds normal, soft, no tenderness, no masses, no pulsatile carlene s. Obese. Old surgery scars. Skin: Warm, dry, no erythema, no rash. [] Back: No tenderness, no CVA tenderness. [] Extremities: No tenderness, no cyanosis, no clubbing, ROM intact, ankle edema. [] No cording appreciated. Neurologic: Alert and oriented X 3, moves all extremities on request, does have distal sensory, no focal deficits noted. [] Psychologic: Affect anxious, judgement normal, mood normal. [] EKG: EKG: My interpretation EKG shows a sinus rhythm at 78 bpm. Low voltage. No findings acute STEMI with contralateral changes [] Radiology/Procedures: Radiology/Procedures: [][address] [address] IMAGING REPORT Signed PATIENT: BRITTON BARAJAS MACCOUNT: [id number] : 1995 LOCATION: ER AGE: 25 SEX: F EXAM STATUS: REG ER ORD. PHYSICIAN: BRIDGER LOPEZ MD REASON: dyspnea, allergic, reaction, cp PROCEDURE: PORTABLE CHEST 1V AP chest x-ray HISTORY: Dyspnea. Allergic reaction. Chest pain. FINDINGS: Heart size normal. Mediastinal silhouette is normal. No pneumothorax, pulmonary opacities or pleural effusions. Bones are unremarkable. IMPRESSION: No acute process. Electronically signed by: Tatiana Martinez MD (11/05/2020 1:32 AM) [facility] DICTATED AND SIGNED BY: TATIANA MARTINEZ MD DATE: 11/05/20130 CC: BRIDGER LOPEZ MD; ANGEL DAVE MD ~MTH0 0 Heart Score: HEART Score for Chest Pain: HEART Score for Chest Pain Response (Comments) Value History Slighlty/Non-Suspicious 0 ECG Normal 0 Age < 45 0 Risk Factors 1 or 2 Risk Factors 1 Troponin < Normal Limit 0 Total 1 Risk Factors: Risk Factors: DM, Current or recent (<one month) smoker, HTN, HLP, family history of CAD, obesity. Risk Scores: Score 0 - 3: 2.5% MACE over next 6 weeks - Discharge Home Score 4 - 6: 20.3% MACE over next 6 weeks - Admit for Clinical Observation Score 7 - 10: 72.7% MACE over next 6 weeks - Early Invasive Strategies Course & Med Decision Making: Course & Med Decision Making Pertinent Labs and Imaging studies reviewed. (See chart for details) Patient monitored in the emergency department and given 20 mg of Pepcid IV, Benadryl, albuterol and Solu-Medrol 125 IV-patient symptoms of allergic reaction resolved. Patient to continue meds as previous directed. Patient take Pepcid 20 mg twice daily. Patient take prednisone 50 mg daily for 5 days. Patient use MDI 2 puffs 4 times a day. Patient to follow-up with primary care. Patient return if any concerns. Patient to keep follow-up with her primary care. Return if any concerns. Impression: 1. Allergic reaction-suspect delayed drug reaction from the IV contrast ye day for CT of abdomen 2. Mild elevation ALT 109 and AST 45 3. Hypomagnesia 1.2 [] Dragon Disclaimer: Dragon Disclaimer: This electronic medical record was generated, in whole or in part, using a voice recognition dictation system. Departure Departure: Referrals: ANGEL DAVE MD (PCP) Scripts Prednisone (PREDNISONE) 50 Mg Tablet 50 MG PO DAILY06 for allergic rx for 5 Days, #5 TAB Prov: BRIDGER LOPEZ MD 11/05/20 Famotidine (PEPCID) 20 Mg Tablet 1 TAB PO BID for allergic rx, #60 TAB 3 Refills Prov: BRIDGER LOPEZ MD 11/05/20 Gogo Disclaimer This chart was dictated in whole or in part using Voice Recognition software in a busy, high-work load, and often noisy Emergency Department environment. It may contain unintended and wholly unrecognized errors or omissions. BRIDGER LOPEZ MD Nov 05, 2020 00:56
[2020-11-05] MEDS ORDERED: diphenhydrAMINE 50 MG/ML VIAL IVP ONE (01:15)
[2020-11-05] MEDS ORDERED: IV RINGERS SOLUTION,LACTATED 1,000 ML IV SCH (01:15)
[2020-11-05] MEDS ORDERED: ALBUTEROL SULFATE 8GM INHALER. INH ONE (01:15)
[2020-11-05] MEDS ORDERED: methylPREDNISolone SOD SUCC PF 125 MG/2 ML VIAL. IV ONE (01:15)
[2020-11-05] MEDS ORDERED: FAMOTIDINE 20 MG/2 ML VIAL IVP ONE (01:15)
--- NOTE | 2020-11-05 01:34 | RAD ---
AP chest x-ray HISTORY: Dyspnea. Allergic reaction. Chest pain. FINDINGS: Heart size normal. Mediastinal silhouette is normal. No pneumothorax, pulmonary opacities o r pleural effusions. Bones are unremarkable. IMPRESSION: No acute process. Electronically signed by: Wayne Martinez MD (11/05/2020 1:32 AM) [facility]
[2020-11-05 02:28] LABS: BASO % 0 % (0-3); EOS % 0 % (0-3); HEMATOCRIT 39.8 % (36.0-47.0); HEMOGLOBIN 13.2 g/dL (12.0-15.5); LYMPH # 1.6 x10^3/uL (1.0-4.8); LYMPH % 17 % (24-48); MEAN CORPUSCULAR HEMOGLOBIN 28 pg (25-35); MEAN CORPUSCULAR HGB CONC 33 g/dL (31-37); MEAN CORPUSCULAR VOLUME 84 fL (79-100); MONO # 0.6 x10^3/uL (0.0-1.1); MONO % 7 % (0-9); NEUT # 7.1 x10^3uL (1.8-7.7); NEUT % 76 % (31-73); PLATELET COUNT 270 x10^3/uL (140-400); RED BLOOD COUNT 4.75 x10^6/uL (3.50-5.40); RED CELL DISTRIBUTION WIDTH 13.9 % (11.5-14.5); WHITE BLOOD COUNT 9.4 x10^3/uL (4.0-11.0)
--- NOTE | 2020-11-05 02:30 | EKG ---
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
[2020-11-05 02:42] LABS: CALCIUM 8.5 mg/dL (8.5-10.1); CREATININE 1.2 mg/dL (0.6-1.0); GFR 55.7; POTASSIUM 4.1 mmol/L (3.5-5.1)
[2020-11-05 02:50] LABS: ALBUMIN 3.8 g/dL (3.4-5.0); DIRECT BILIRUBIN 0.1 mg/dL (0.0-0.2); MAGNESIUM 1.6 mg/dL (1.8-2.4); TOTAL BILIRUBIN 0.1 mg/dL (0.2-1.0); TOTAL PROTEIN 7.2 g/dL (6.4-8.2)
[2020-11-05] MEDS ORDERED: PRED50TA PO (02:53)
[2020-11-05] MEDS ORDERED: FAMO-63 PO (02:53)
[2020-11-05 02:59] VITALS: BP 143/70
[2020-11-05] MEDS ORDERED: MAGNESIUM HYDROXIDE 2,400 MG/30 ML ORAL.SUSP. PO ONE (03:15)
[2020-11-05] MEDS ORDERED: MAGNESIUM SULFATE 2GM 50 ML IV ONE (03:15)
== END 2020-11-05 03:04 | disposition home or self-care (01) ==
LOC: ER 23:45
DX: T78.40XA Allergy, unspecified, initial encounter (principal); R79.89 Other specified abnormal findings of blood chemistry; E83.42 Hypomagnesemia; M19.90 Unspecified osteoarthritis, unspecified site; M79.7 Fibromyalgia; K21.9 Gastro-esophageal reflux disease without esophagitis; E66.9 Obesity, unspecified; Z68.38 Body mass index [BMI] 38.0-38.9, adult; Z88.2 Allergy status to sulfonamides; Z88.1 Allergy status to other antibiotic agents; Z91.012 Allergy to eggs; Z91.010 Allergy to peanuts; Z91.013 Allergy to seafood; X58.XXXA Exposure to other specified factors, initial encounter
CPT/HCPCS: 36415; 71045; 80048; 80076; 82550; 83690; 83735; 83880; 84484; 85025; 85610; 85730; 93005; 94640; 96361; 96374; 96375; 99285; J1200; J2930; J3490; J7120; 94664

== ENCOUNTER 2021-04-16 04:03 | Emergency (ER) | payer BC, OTHER ==
[~2021-04-16] VITALS: Ht 177.8 cm; Wt 122.7 kg
[~2021-04-16 04:03] MED LIST changes: +FAMO-63 PO; +PRED50TA PO
--- NOTE | 2021-04-16 04:34 | PHYS DOC ---
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 States that it started about assisted through her shift. States that she has had episodes like this in the past but it has been a while. Denies any recent travel, traumas, illnesses, fev ers, chest pain, shortness of breath, abdominal pain, nausea, vomiting, diarrhea, dysuria, hematuria or blood in the stool. 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 States she has been eating and drinking normally for her. States has been making urine and stool normally for her with no blood in either. Denies any alc ohol or drug use. Review of Systems Review of Systems Review of systems otherwise unremarkable except noted in HPI Allergies Allergies Allergies Coded Allergies Type Severity Reaction Last Updated Verified Sulfa (Sulfonamide Antibiotics) Allergy Intermediate 10/07/19 Yes cephalexin Allergy Intermediate 10/07/19 Yes egg Allergy Intermediate 10/07/19 Yes peanut Allergy Intermediate 10/07/19 Yes shellfish derived Allergy Intermediate 10/07/19 Yes Physical Exam Physical Exam Constitutional: Well developed, well nourished, no acute distress, non-toxic appearance. [] HENT: Normocephalic, atraumatic, oropharynx moist, no oral exudates, nose normal. [] Eyes: conjunctiva normal, no discharge. [] Neck: Normal range of motion, no tenderness, supple, no stridor. [] Cardiovascular:Heart rate regular rhythm, no murmur [] Lungs & Thorax: Bilateral breath sounds clear to auscultation [] Abdomen: soft, no tenderness, no masses, no pulsatile masses. [] Skin: Warm, dry, no erythema, no rash. [] Extremities: No tenderness, no cyanosis, no clubbing, ROM intact, no edema. [] Neurologic: Alert and oriented X 3, normal motor function, normal sensory function, able to sit, stand and walk without issue, no focal deficits noted. [] Psychologic: Affect normal, judgement normal, mood normal. [] EKG EKG EKG with a rate of 79, QRS of 110, QTc of 428, no STEMI [] Radiology/Procedures Radiology/Procedures [] Heart Score C/O Chest Pain: No Risk Factors: Risk Factors: DM, Current or recent (<one month) smoker, HTN, HLP, family history of CAD, obesity. Risk Scores: Risk Factors: DM, Current or recent (<one month) smoker, HTN, HLP, family history of CAD, obesity. Course & Med Decision Making Course & Med Decision Making Patient is a 26-year-old female who presents from work with a chief complaint of lightheadedness and shakiness Vital signs not concerning. Physical exam noted above. Blood sugar normal. EKG noted above and normal. Urinalysis not concerning. Negative . Laboratory analysis not concerning. Patient asymptomatic in the ED. Able to take p.o. without issue. TSH pending and discussed this with patient for follow-up. Gave work note for the next couple of days to allow contact with primary care physician on Sunday. Discussed all findings with patient. Advised to call primary care physician first thing Sunday morning to set up follow-up visit. Gave strict return precautions to the ED. Patient grateful, verbalized understanding and agreed with plan of discharge. Dragon Disclaimer Dragon Disclaimer This electronic medical record was generated, in whole or in part, using a voice recognition dictation system. Departure Departure: Impression: Primary Impression: Light-headed feeling Additional Impression: Shakiness Disposition: 01 HOME / SELF CARE / HOMELESS Condition: GOOD Referrals: ANGEL DAVE MD (PCP) Patient Instructions: Dizziness, Hyperthyroidism, Tremor Additional Instructions: Thank you for coming into the emergency department tonight and allowing us to take care of you. Please read all of the attached information very carefully to go back over some of the things we talked about and possible causes. The i nformation on dizziness and hyperthyroidism are possibilities as we discussed but not necessarily your diagnosis. Your laboratory analysis was reassuring tonight however, the thyroid study that we sent and will not be back until tomorrow or the next day. You are given a work note for tomorrow to allow rest over the weekend and since you are off on Sunday, please call your primary care physician very first thing to set up a ER follow-up visit that day if possible to discuss further evaluation and treatment and go over the labs obtained here tonight. Please come back to the emergency department immediately with new or concerning symptoms as discussed. Problem Qualifiers BRANDI QUINN MD Apr 16, 2021 04:34
[2021-04-16 04:49] LABS: BILIRUBIN,URINE NEG (NEG); CLARITY,URINE CLEAR; COLOR,URINE YELLOW; GLUCOSE,URINE NEG (NEG)
[2021-04-16 04:50] LABS: BACTERIA,URINE 0 /HPF (0-FEW); NITRITE,URINE NEG (NEG); RBC,URINE 0 /HPF (0-2); SQUAMOUS EPITHELIAL CELL,UR FEW /LPF; UROBILINOGEN,URINE 0.2 mg/dL (0.2 mg/dL); WBC,URINE 0 /HPF (0-4)
[2021-04-16 05:12] VITALS: BP 137/88
[2021-04-16 05:27] LABS: BASO # 0.1 x10^3/uL (0.0-0.2); BASO % 1 % (0-3); EOS % 1 % (0-3); HEMATOCRIT 36.9 % (36.0-47.0); HEMOGLOBIN 12.4 g/dL (12.0-15.5); LYMPH # 1.8 x10^3/uL (1.0-4.8); LYMPH % 31 % (24-48); MEAN CORPUSCULAR HEMOGLOBIN 28 pg (25-35); MEAN CORPUSCULAR HGB CONC 34 g/dL (31-37); MEAN CORPUSCULAR VOLUME 84 fL (79-100); MONO # 0.7 x10^3/uL (0.0-1.1); MONO % 12 % (0-9); NEUT # 3.2 x10^3uL (1.8-7.7); NEUT % 56 % (31-73); PLATELET COUNT 248 x10^3/uL (140-400); RED CELL DISTRIBUTION WIDTH 14.4 % (11.5-14.5); WHITE BLOOD COUNT 5.7 x10^3/uL (4.0-11.0)
[2021-04-16 05:33] LABS: CALCIUM 8.2 mg/dL (8.5-10.1); CREATININE 1.1 mg/dL (0.6-1.0); POTASSIUM 4.6 mmol/L (3.5-5.1)
--- NOTE | 2021-04-16 06:06 | EKG ---
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
== END 2021-04-16 05:44 | disposition home or self-care (01) ==
LOC: ER 04:03
DX: R42 Dizziness and giddiness (principal); R25.1 Tremor, unspecified; M19.90 Unspecified osteoarthritis, unspecified site; M79.7 Fibromyalgia; K21.9 Gastro-esophageal reflux disease without esophagitis; E03.9 Hypothyroidism, unspecified; Z88.2 Allergy status to sulfonamides; Z88.1 Allergy status to other antibiotic agents; Z91.012 Allergy to eggs; Z91.013 Allergy to seafood; Z91.010 Allergy to peanuts
CPT/HCPCS: 36415; 80048; 81001; 81025; 82947; 84443; 85025; 93005; 99284

== ENCOUNTER → 2021-04-23 | Outpatient (CLI) | payer OTHER ==
[2021-04-16 05:12] VITALS: BP 137/88
== END ==
LOC: LAB 06:49
PROVIDERS: ATTEND Internal Medicine Cardiovascular Disease
DX: Z20.822 Contact with and (suspected) exposure to COVID-19 (principal)
CPT/HCPCS: U0003; U0005

== ENCOUNTER → 2021-04-29 | Outpatient (CLI) | payer OTHER ==
[2021-04-16 05:12] VITALS: BP 137/88
== END ==
LOC: LAB 10:32
PROVIDERS: ATTEND Internal Medicine Cardiovascular Disease
DX: Z20.822 Contact with and (suspected) exposure to COVID-19 (principal)
CPT/HCPCS: U0003

== ENCOUNTER → 2021-05-07 | Outpatient (CLI) | payer OTHER ==
[2021-04-16 05:12] VITALS: BP 137/88
== END ==
LOC: LAB 06:20
PROVIDERS: ATTEND Internal Medicine Cardiovascular Disease
DX: Z20.822 Contact with and (suspected) exposure to COVID-19 (principal)
CPT/HCPCS: C9803; U0003

== ENCOUNTER → 2021-05-13 | Outpatient (CLI) | payer OTHER ==
[2021-04-16 05:12] VITALS: BP 137/88
== END ==
LOC: LAB 06:39
PROVIDERS: ATTEND Internal Medicine Cardiovascular Disease
DX: Z20.822 Contact with and (suspected) exposure to COVID-19 (principal)
CPT/HCPCS: U0003

== ENCOUNTER → 2021-05-20 | Outpatient (CLI) | payer OTHER | LOC: LAB 07:15 | PROVIDERS: ATTEND Internal Medicine Cardiovascular Disease | DX: Z20.822 Contact with and (suspected) exposure to COVID-19 (principal) | CPT/HCPCS: U0003 ==

== ENCOUNTER → 2021-06-10 | Outpatient (CLI) | payer OTHER | LOC: LAB 07:03 | PROVIDERS: ATTEND Internal Medicine Cardiovascular Disease | DX: Z20.822 Contact with and (suspected) exposure to COVID-19 (principal) | CPT/HCPCS: U0003 ==

== ENCOUNTER → 2021-06-17 | Outpatient (CLI) | payer OTHER | LOC: LAB 07:29 | PROVIDERS: ATTEND Internal Medicine Cardiovascular Disease | DX: Z20.822 Contact with and (suspected) exposure to COVID-19 (principal) | CPT/HCPCS: U0003 ==

== ENCOUNTER → 2021-06-26 | Outpatient (CLI) | payer OTHER | LOC: LAB 07:00 | PROVIDERS: ATTEND Internal Medicine Cardiovascular Disease | DX: Z20.822 Contact with and (suspected) exposure to COVID-19 (principal) | CPT/HCPCS: C9803; U0003 ==

== ENCOUNTER → 2021-07-10 | Outpatient (CLI) | payer OTHER | LOC: LAB 04:30 | PROVIDERS: ATTEND Internal Medicine Cardiovascular Disease | DX: Z20.822 Contact with and (suspected) exposure to COVID-19 (principal) | CPT/HCPCS: C9803; U0003 ==

== ENCOUNTER → 2021-07-20 | Outpatient (CLI) | payer OTHER | LOC: LAB 10:53 | PROVIDERS: ATTEND Internal Medicine Cardiovascular Disease | DX: R05.9 Cough, unspecified (principal); R50.9 Fever, unspecified; R51.9 Headache, unspecified; M79.10 Myalgia, unspecified site; J02.9 Acute pharyngitis, unspecified; Z20.822 Contact with and (suspected) exposure to COVID-19 | CPT/HCPCS: U0003 ==

== ENCOUNTER → 2021-07-31 | Outpatient (CLI) | payer OTHER | LOC: LAB 07-20 10:29 | PROVIDERS: ATTEND Internal Medicine Cardiovascular Disease | DX: Z20.822 Contact with and (suspected) exposure to COVID-19 (principal) | CPT/HCPCS: C9803; U0003 ==

== ENCOUNTER → 2021-08-07 | Outpatient (CLI) | payer OTHER | LOC: LAB 04:25 | PROVIDERS: ATTEND Internal Medicine Cardiovascular Disease | DX: Z20.822 Contact with and (suspected) exposure to COVID-19 (principal) | CPT/HCPCS: C9803; U0003 ==

== ENCOUNTER → 2021-08-14 | Outpatient (CLI) | payer OTHER | LOC: LAB 05:55 | PROVIDERS: ATTEND Internal Medicine Cardiovascular Disease | DX: Z20.822 Contact with and (suspected) exposure to COVID-19 (principal) | CPT/HCPCS: C9803; U0003 ==

== ENCOUNTER → 2021-08-22 | Outpatient (CLI) | payer OTHER | LOC: LAB 03:45 | PROVIDERS: ATTEND Internal Medicine Cardiovascular Disease | DX: Z20.822 Contact with and (suspected) exposure to COVID-19 (principal) | CPT/HCPCS: C9803; U0003 ==

== ENCOUNTER → 2021-08-28 | Outpatient (CLI) | payer OTHER | LOC: LAB 05:00 | PROVIDERS: ATTEND Internal Medicine Cardiovascular Disease | DX: Z20.822 Contact with and (suspected) exposure to COVID-19 (principal) | CPT/HCPCS: C9803; U0003 ==

== ENCOUNTER → 2021-09-05 | Outpatient (CLI) | payer OTHER | LOC: LAB 04:20 | PROVIDERS: ATTEND Internal Medicine Cardiovascular Disease | DX: Z20.822 Contact with and (suspected) exposure to COVID-19 (principal) | CPT/HCPCS: C9803; U0003 ==

== ENCOUNTER → 2021-09-11 | Outpatient (CLI) | payer OTHER | LOC: LAB 06:20 | PROVIDERS: ATTEND Internal Medicine Cardiovascular Disease | DX: Z20.822 Contact with and (suspected) exposure to COVID-19 (principal) | CPT/HCPCS: C9803; U0003 ==

== ENCOUNTER → 2021-09-18 | Outpatient (CLI) | payer OTHER | LOC: LAB 04:15 | PROVIDERS: ATTEND Internal Medicine Cardiovascular Disease | DX: Z20.822 Contact with and (suspected) exposure to COVID-19 (principal) | CPT/HCPCS: C9803; U0003 ==

== ENCOUNTER → 2021-09-25 | Outpatient (CLI) | payer OTHER | LOC: LAB 06:30 | PROVIDERS: ATTEND Internal Medicine Cardiovascular Disease | DX: Z20.822 Contact with and (suspected) exposure to COVID-19 (principal) | CPT/HCPCS: C9803; U0003 ==

== ENCOUNTER → 2021-10-02 | Outpatient (CLI) | payer OTHER | LOC: LAB 06:15 | PROVIDERS: ATTEND Internal Medicine Cardiovascular Disease | DX: Z20.822 Contact with and (suspected) exposure to COVID-19 (principal) | CPT/HCPCS: C9803; U0003 ==

== ENCOUNTER → 2021-10-09 | Outpatient (CLI) | payer OTHER | LOC: LAB 05:45 | PROVIDERS: ATTEND Internal Medicine Cardiovascular Disease | DX: Z20.822 Contact with and (suspected) exposure to COVID-19 (principal) | CPT/HCPCS: C9803; U0003 ==

== ENCOUNTER → 2021-10-15 | Outpatient (CLI) | payer OTHER | LOC: LAB 06:20 | PROVIDERS: ATTEND Internal Medicine Cardiovascular Disease | DX: Z20.822 Contact with and (suspected) exposure to COVID-19 (principal) | CPT/HCPCS: C9803; U0003 ==

== ENCOUNTER → 2021-10-19 | Outpatient (CLI) | payer OTHER | LOC: LAB 10:19 | PROVIDERS: ATTEND Internal Medicine Cardiovascular Disease | DX: R51.9 Headache, unspecified (principal); R05.9 Cough, unspecified; J02.9 Acute pharyngitis, unspecified; M79.10 Myalgia, unspecified site; Z20.822 Contact with and (suspected) exposure to COVID-19 | CPT/HCPCS: U0003 ==

== ENCOUNTER 2021-11-06 07:07 | Emergency (ER) | payer OTHER ==
[~2021-11-06] VITALS: Ht 175.3 cm; Wt 98.0 kg
--- NOTE | 2021-11-06 07:37 | PHYS DOC ---
Past History Past Medical History: Arthritis, Fibromyalgia, GERD, Other Additional Past Medical Histor: LUPUS,PSORIATIC ARTHRITIS, ULCER IN SMALL INTESTINE AND STOMACH Past Surgical History: Cholecystectomy Alcohol Use: Rarely Drug Use: None General Adult EDM: Chief Complaint: CHEST PAIN HPI: HPI: 26-year-old female presents with chest pain. The patient is just coming off of quarantine after chente COVID-19. She describes the chest pain as an aching sensation in the central of her chest. It increases and decreases but does not go away. It is currently mild. Is made worse with exertion and improves with rest. She is also having intermittent left lateral stabbing chest pain. This seems to be at random and short-lived. She denies significant shortness of breath or diaphoresis. She assumes this is just sequela from Covid but wanted to make sure it was not something more serious. Review of Systems: Review of Systems: Constitutional: Denies fever or chills Eyes: Denies change in visual acuity HENT: Denies nasal congestion or sore throat Respiratory: Denies cough or shortness of breath Cardiovascular: Chest pain GI: Denies abdominal pain, nausea, vomiting, bloody stools or diarrhea : Denies dysuria Musculoskeletal: Denies back pain or joint pain Integument: Denies rash Neurologic: Denies headache, focal weakness or sensory changes Endocrine: Denies polyuria or polydipsia Lymphatic: Denies swollen glands Psychiatric: Denies depression or anxiety Allergies: Allergies: Allergies Coded Allergies Type Severity Reaction Last Updated Verified Sulfa (Sulfonamide Antibiotics) Allergy Intermediate 11/06/21 Yes cephalexin Allergy Intermediate 11/06/21 Yes egg Allergy Intermediate 11/06/21 Yes iodine Allergy Intermediate 11/06/21 Yes peanut Allergy Intermediate 11/06/21 Yes shellfish derived Allergy Intermediate 11/06/21 Yes sulfamethoxazole Allergy Intermediate 04/16/21 Yes trimethoprim Allergy Intermediate 04/16/21 Yes Physical Exam: PE: Constitutional: Well developed, well nourished, obese, no acute distress, non- toxic appearance. [] HENT: Normocephalic, atraumatic, bilateral external ears normal, oropharynx moist, no oral exudates, nose normal. [] Eyes: PERRLA, EOMI, conjunctiva normal, no discharge. [] Neck: Normal range of motion, no tenderness, supple, no stridor. [] Cardiovascular: Heart rate regular rhythm, no murmur [] Lungs & Thorax: Bilateral breath sounds clear to auscultation [] Abdomen: Bowel sounds normal, soft, no tenderness, no masses, no pulsatile masses. [] Skin: Warm, dry, no erythema, no rash. [] Back: No tenderness, no CVA tenderness. [] Extremities: No tenderness, no cyanosis, no clubbing, ROM intact, no edema. [] Neurologic: Alert and oriented X 3, normal motor function, normal sensory function, no focal deficits noted. [] Psychologic: Affect normal, judgement normal, mood concerned. [] EKG: EKG: Sinus rhythm, rate 96, normal axis, no ST elevation or depression. [] Radiology/Procedures: Radiology/Procedures: [] Heart Score: C/O Chest Pain: Yes HEART Score for Chest Pain: HEART Score for Chest Pain Response (Comments) Value History Slighlty/Non-Suspicious 0 ECG Normal 0 Age < 45 0 Risk Factors 1 or 2 Risk Factors 1 Troponin < Normal Limit 0 Total 1 Risk Factors: Risk Factors: DM, Current or recent (<one month) smoker, HTN, HLP, family history of CAD, obesity. Risk Scores: Score 0 - 3: 2.5% MACE over next 6 weeks - Discharge Home Score 4 - 6: 20.3% MACE over next 6 weeks - Admit for Clinical Observation Score 7 - 10: 72.7% MACE over next 6 weeks - Early Invasive Strategies Course & Med Decision Making: Course & Med Decision Making Pertinent Labs and Imaging studies reviewed. (See chart for details) The patient's EKG is unremarkable. Her labs are unremarkable. Her troponin is negative. Her chest x-ray is negative for acute findings. This is likely sequela of COVID-19. I do not see any concerning or life-threatening cardiopulmonary condition at this time. She is stable for discharge. [] Dragon Disclaimer: Dragon Disclaimer: This electronic medical record was generated, in whole or in part, using a voice recognition dictation system. Departure Departure: Impression: Primary Impression: Chest pain Qualified Codes: R07.9 - Chest pain, unspecified Disposition: HOME / SELF CARE / HOMELESS Condition: STABLE Referrals: ANGEL DAVE MD (PCP) Patient Instructions: Chest Pain (Nonspecific), [id number] KELSIE FALL DO Nov 06, 2021 07:37
[2021-11-06 07:56] LABS: BASO # 0.1 x10^3/uL (0.0-0.2); BASO % 1 % (0-3); EOS # 0.1 x10^3/uL (0.0-0.7); EOS % 1 % (0-3); HEMATOCRIT 38.8 % (36.0-47.0); HEMOGLOBIN 12.9 g/dL (12.0-15.5); LYMPH # 3.1 x10^3/uL (1.0-4.8); LYMPH % 39 % (24-48); MEAN CORPUSCULAR HEMOGLOBIN 27 pg (25-35); MEAN CORPUSCULAR HGB CONC 33 g/dL (31-37); MEAN CORPUSCULAR VOLUME 81 fL (79-100); MONO # 0.9 x10^3/uL (0.0-1.1); MONO % 11 % (0-9); NEUT # 3.8 x10^3uL (1.8-7.7); NEUT % 48 % (31-73); PLATELET COUNT 280 x10^3/uL (140-400); RED BLOOD COUNT 4.77 x10^6/uL (3.50-5.40); RED CELL DISTRIBUTION WIDTH 13.7 % (11.5-14.5); WHITE BLOOD COUNT 7.9 x10^3/uL (4.0-11.0)
[2021-11-06 08:01] LABS: CALCIUM 8.5 mg/dL (8.5-10.1); GFR 68.1; POTASSIUM 4.3 mmol/L (3.5-5.1)
--- NOTE | 2021-11-06 08:09 | EKG ---
[address] [address] Test Date: 2021-11-06 Test Time: 07:21:20 Pat Name: BRITTON BARAJAS Department: Room: Gender: F Radar Technician: KATYA : 1995 Requested By: KELSIE FALL Order Number: [id number] Reading MD: Misael Portillo Measurements Intervals [place] Rate: 96 P: 48 AL: 154 QRS: 58 QRSD: 86 T: 41 QT: 348 QTc: 446 Interpretive Statements SINUS RHYTHM Electronically Signed On 11-07-2021 11:44:39 IN[employer]TER AND CLIPPER by Misael Portillo
[2021-11-06 08:18] LABS: ALBUMIN 3.7 g/dL (3.4-5.0); ALBUMIN/GLOBULIN RATIO 1.1 (1.0-1.7); TOTAL BILIRUBIN 0.3 mg/dL (0.2-1.0); TOTAL PROTEIN 7.1 g/dL (6.4-8.2)
--- NOTE | 2021-11-06 08:22 | RAD ---
EXAM: CHEST 1 VIEW History: Chest pain COMPARISON: 07/31/2020 TECHNIQUE: Single portable radiograph of the chest FINDINGS: The cardiac silhouette is unremarkable. Mild bibasilar lung airspace opacities likely atel ectasis or infiltrates. The costophrenic sulci are clear and well demarcated. IMPRESSION: Mild bibasilar lung airspace opacities likely atelectasis or infiltrates. Electronically signed by: Kaz Uriostegui MD (11/06/2021 8:20 AM) [id number]
[2021-11-06 08:25] VITALS: BP 127/77
== END 2021-11-06 08:27 | disposition home or self-care (01) ==
LOC: ER 07:07
DX: R07.89 Other chest pain (principal); M19.90 Unspecified osteoarthritis, unspecified site; M79.7 Fibromyalgia; K21.9 Gastro-esophageal reflux disease without esophagitis; Z88.2 Allergy status to sulfonamides; Z88.1 Allergy status to other antibiotic agents; Z91.012 Allergy to eggs; Z88.8 Allergy status to other drugs, medicaments and biological substances; Z91.013 Allergy to seafood; Z91.010 Allergy to peanuts
CPT/HCPCS: 36415; 71045; 80053; 84484; 85025; 93005; 99285

== ENCOUNTER 2022-01-21 07:09 | Emergency (ER) | payer BC, OTHER ==
[~2022-01-21] VITALS: Ht 177.8 cm; Wt 127.6 kg
[2022-01-21 07:10] VITALS: BP 132/85
[2022-01-21] MEDS ORDERED: AMOX1TAB61 PO (07:33)
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
== END 2022-01-21 07:47 | disposition home or self-care (01) ==
LOC: ER 07:09
DX: S61.452A Open bite of left hand, initial encounter (principal); Z88.2 Allergy status to sulfonamides; Z88.1 Allergy status to other antibiotic agents; Z91.010 Allergy to peanuts; Z91.012 Allergy to eggs; Z91.013 Allergy to seafood; Z90.49 Acquired absence of other specified parts of digestive tract; W50.3XXA Accidental bite by another person, initial encounter; Y93.89 Activity, other specified; Y92.89 Other specified places as the place of occurrence of the external cause; Y99.8 Other external cause status
CPT/HCPCS: 99283-25